=== PATIENT | male | born 1990 | race Two or more races ===

== ENCOUNTER 2019-10-22 06:56 | Emergency (ER) | payer OTHER ==
[~2019-10-22] VITALS: Ht 177.8 cm; Wt 90.7 kg
[2019-10-22 07:31] VITALS: BP 137/87
[2019-10-22] MEDS ORDERED: IBUPROFEN 800 MG TAB PO ONE (07:45)
== END 2019-10-22 09:11 | disposition home or self-care (01) ==
LOC: ER 06:56
DX: S62.612A Displaced fracture of proximal phalanx of right middle finger, initial encounter for closed fracture (principal); X58.XXXA Exposure to other specified factors, initial encounter; Y93.89 Activity, other specified; Y92.69 Other specified industrial and construction area as the place of occurrence of the external cause; Y99.8 Other external cause status
CPT/HCPCS: 29125; 73130